=== PATIENT | male | born 1980 | race Two or more races ===

== ENCOUNTER 2019-12-11 08:54 | Emergency (ER) | payer SELFPAY ==
[2019-12-11 10:23] LABS: ABSOLUTE LYMPHOCYTES (AUTO) 1.2 10^3/uL (0.5-4.7); ABSOLUTE MONOCYTES (AUTO) 0.7 10^3/uL (0.1-1.4); ABSOLUTE NEUT (AUTO) 3.5 10^3/uL (1.7-8.2); BASOPHILS % (AUTO) 0.9 % (0-2); EOSINOPHILS % (AUTO) 0.2 % (0-6); HEMATOCRIT 49.6 % (37.9-51.0); HEMOGLOBIN 17.1 g/dL (13.5-17.0); LYMPHOCYTES % (AUTO) 22.6 % (13-45); MEAN CORPUSCULAR HEMOGLOBIN 32.9 pg (27.0-33.4); MEAN CORPUSCULAR HGB CONC 34.5 g/dL (32.0-36.0); MEAN CORPUSCULAR VOLUME 95 fl (80-97); MONOCYTES % (AUTO) 12.6 % (3-13); PLATELET COUNT 180 10^3/uL (150-450); RED BLOOD COUNT 5.21 10^6/uL (4.35-5.55); RED CELL DISTRIBUTION WIDTH 14.3 % (11.5-14.0); SEGMENTED NEUTROPHILS % (AUTO) 63.7 % (42-78); TOTAL CELLS COUNTED % (AUTO) 100 %; WHITE BLOOD COUNT 5.4 10^3/uL (4.0-10.5)
[2019-12-11 10:26] LABS: APPEARANCE,URINE CLEAR; BILIRUBIN,URINE NEGATIVE (NEGATIVE); COLOR,URINE STRAW; GLUCOSE, URINE 50 mg/dL (NEGATIVE); KETONES,URINE NEGATIVE (NEGATIVE); LEUKOCYTE ESTERASE,URINE NEGATIVE (NEGATIVE); NITRITE,URINE NEGATIVE (NEGATIVE); PROTEIN,URINE NEGATIVE (NEGATIVE); URINE SPECIFIC GRAVITY 1.005; UROBILINOGEN,URINE NEGATIVE mg/dL (<2.0)
[2019-12-11 10:44] LABS: ALBUMIN 4.8 g/dL (3.5-5.0); ALKALINE PHOSPHATASE 117 U/L (38-126); ANION GAP 17 (5-19); ASPARTATE AMINO TRANSFERASE 121 U/L (17-59); BILIRUBIN,TOTAL 0.7 mg/dL (0.2-1.3); BLOOD UREA NITROGEN 9 mg/dL (7-20); CALCIUM 9.5 mg/dL (8.4-10.2); CARBON DIOXIDE 21 mmol/L (22-30); CHLORIDE 97 mmol/L (98-107); GLUCOSE 190 mg/dL (75-110); POTASSIUM 3.7 mmol/L (3.6-5.0); TOTAL PROTEIN 8.5 g/dL (6.3-8.2)
[2019-12-11 14:24] LABS: CHLAM PCR NOT DETECTED (NOT DETECT)
--- NOTE | 2019-12-11 14:50 | ER Document Report ---
ED General - General Chief Complaint: High Blood Sugar Stated Complaint: DIZZY/BLOOD SUGAR PROBLEM Time Seen by Provider: 12/11/19 10:42 TRAVEL OUTSIDE OF THE [place] IN LAST 30 DAYS: No - HPI Notes: Chief complaint: Elevated blood sugar, dizziness, blurred vision and irritation of the penis History of present illness: 39-year-old male seen by primary care provider in [place], [place] with a known history of diabetes mellitus type 2 presents with 2-week history of complaints as indicated above. Patient is currently on metformin 500 mg once daily. He says he avoids sweets and sugars but otherwise is not on a strict diet. He denies fever, chills, or vomiting. - Related Data Allergies/Adverse Reactions: No Known Allergies Allergy (Verified 12/11/19 09:21) Home Medications: metformin Past Medical History - General Information source: Patient, Friend - Social History Smoking Status: Former Smoker Chew tobacco use (# tins/day): No Frequency of alcohol use: Social Drug Abuse: None Family History: Reviewed & Not Pertinent Patient has homicidal ideation: No Endocrine Medical History: Reports: Hx Diabetes Mellitus Type 2 Renal/ Medical History: Denies: Hx Peritoneal Dialysis Past Surgical History: Reports: None Review of Systems - Review of Systems Notes: Constitutional: Negative for fever. HENT: Negative for sore throat. Eyes: As per HPI. Cardiovascular: Negative for chest pain. Respiratory: Negative for shortness of breath. Gastrointestinal: Negative for abdominal pain, vomiting or diarrhea. Genitourinary: As per HPI. Musculoskeletal: Negative for back pain. Skin: Negative for rash. Neurological: As per HPI. 10 point ROS negative except as marked above and in HPI. Physical Exam - Vital signs Vitals: Temp Pulse Resp BP Pulse Ox 97.3 F 113 H 16 150/100 H 100 12/11/19 08:58 12/11/19 08:58 12/11/19 08:58 12/11/19 08:58 12/11/19 08:58 - Notes Notes: GENERAL: Slender male approximately stated age appearing in no acute distress. SKIN: Good turgor no rashes. HEAD: Normocephalic atraumatic. EYES: PERRLA. EOMI. Conjunctivae and sclerae clear. EARS: CANALS AND TMS CLEAR. NOSE: CLEAR. MOUTH: Moist mucosa. Good dentition. No stridor or edema. No drooling. NECK: Supple. No masses or thyromegaly. No adenopathy. Carotids 2+ without bruits. No JVD. BACK: Symmetrical without tenderness. CHEST: Respirations unlabored. Breath sounds clear and symmetrical. HEART: Regular rhythm. No murmur gallop or rub. ABDOMEN: Soft nontender without masses, organomegaly or rebound. Bowel sounds normally active. No bruits. GENITALIA: Uncircumcised male with mild irritation of the glans penis. No urethral discharge. EXTREMITIES: No edema. No calf tenderness. Cap refill less than 1.5 seconds. Dorsalis pedis and posterior tibial pulses 3+ and symmetrical. NEUROLOGICAL: GCS 15. Alert and oriented x3. Normal gait. Fluent speech. Cr anial nerves II through XII intact. Sensorimotor and cerebellar normal. Normal tone. PSYCHIATRIC: Appropriate affect. Course - Vital Signs Vital signs: Temp Pulse Resp BP Pulse Ox 97.3 F 113 H 16 150/100 H 100 12/11/19 08:58 12/11/19 08:58 12/11/19 08:58 12/11/19 08:58 12/11/19 08:58 - Laboratory Result Diagrams: 12/11/19 09:50 12/11/19 09:50 Laboratory results interpreted by me: 12/11/19 12/11/19 12/11/19 08:59 09:50 09:50 Hgb 17.1 H RDW 14.3 H Sodium 135.3 L Chloride 97 L Carbon Dioxide 21 L Glucose 190 H POC Glucose 207 H AST 121 H ALT 52 H Total Protein 8.5 H Urine Glucose (UA) 12/11/19 09:50 Hgb RDW Sodium Chloride Carbon Dioxide Glucose POC Glucose AST ALT Total Protein Urine Glucose (UA) 50 H Discharge - Discharge Clinical Impression: Candidal balanoposthitis, Hyperglycemia, Diabetes mellitus type 2 in nonobese Condition: Stable Disposition: HOME, SELF-CARE Additional Instructions: Aumente silva tableta para la diabetes a DOS VECES al da. Use crema en el pene 3 veces al da. Consulte a silva mdico esta semana. Regresa aqui si esta peor. Prescriptions: Clotrimazole/Betamethasone Dip [Lotrisone Cream 15 gm] 15 applic EXT TID 14 Days #1 tube Forms: Elevated Blood Pressure
[2019-12-11 15:11] VITALS: BP 151/100
== END 2019-12-11 15:11 | disposition home or self-care (01) ==
LOC: ER 08:54
DX: B37.49 Other urogenital candidiasis (principal); N47.6 Balanoposthitis; E11.65 Type 2 diabetes mellitus with hyperglycemia; Z79.84 Long term (current) use of oral hypoglycemic drugs; Z87.891 Personal history of nicotine dependence
CPT/HCPCS: 36415; 80053; 81001; 82962; 85025; 87491; 87591; 99283